=== PATIENT | female | born 1980 | race African-American/Black ===

== ENCOUNTER → 2016-05-06 | Outpatient (CLI) | payer OTHER | LOC: OD 16:52 | PROVIDERS: ATTEND Physician Assistant | DX: M25.562 Pain in left knee (principal) ==

== ENCOUNTER 2016-05-11 18:31 | Emergency (ER) | payer OTHER ==
--- NOTE | 2016-05-11 18:40 | ER Document Report ---
ED Medical Screen (RME) - General Stated Complaint: DIZZINESS,WEAKNESS,DIFFICULTY BREATHING Time seen by provider: 18:39 Mode of Arrival: Ambulatory Information source: Patient Notes: 35-year-old female with a history of asthma is complaining of asthma exacerbation for several weeks. She continues with a cough. Her doctor started her on prednisone 6 days ago. She started feeling weak and dizzy yesterday. I have greeted and performed a rapid initial assessment of this patient. A comprehensive ED assessment, evaluation of the patient, analysis of test results , and completion of the medical decision making process will be contacted by additional ED providers. TRAVEL OUTSIDE OF THE [place] IN LAST 30 DAYS: No Physical Exam - Vital signs Vitals: Temp Pulse Resp BP Pulse Ox 98.0 F 76 18 130/79 H 99 05/11/16 18:36 05/11/16 18:36 05/11/16 18:36 05/11/16 18:36 05/11/16 18:36 Course - Vital Signs Vital signs: Temp Pulse Resp BP Pulse Ox 98.0 F 76 18 130/79 H 99 05/11/16 18:36 05/11/16 18:36 05/11/16 18:36 05/11/16 18:36 05/11/16 18:36
[2016-05-11 19:10] LABS: ABSOLUTE BASOPHILS # (AUTO) 0.1 10^3/uL (0.0-0.2); ABSOLUTE EOSINOPHILS # (AUTO) 0.1 10^3/uL (0.0-0.6); ABSOLUTE LYMPHOCYTES (AUTO) 2.3 10^3/uL (0.5-4.7); ABSOLUTE MONOCYTES (AUTO) 0.4 10^3/uL (0.1-1.4); ABSOLUTE NEUT (AUTO) 3.5 10^3/uL (1.7-8.2); BASOPHILS % (AUTO) 0.9 % (0-2); EOSINOPHILS % (AUTO) 1.7 % (0-6); HEMATOCRIT 43.4 % (36.0-47.0); HEMOGLOBIN 14.3 g/dL (12.0-15.5); HGB HCT DIFFERENCE -0.5; LYMPHOCYTES % (AUTO) 35.8 % (13-45); MEAN CORPUSCULAR HGB CONC 32.9 g/dL (32.0-36.0); MEAN CORPUSCULAR VOLUME 85 fl (80-97); MONOCYTES % (AUTO) 6.4 % (3-13); RED BLOOD COUNT 5.11 10^6/uL (3.72-5.28); RED CELL DISTRIBUTION WIDTH 13.3 % (11.5-14.0); SEGMENTED NEUTROPHILS % (AUTO) 55.2 % (42-78); WHITE BLOOD COUNT 6.3 10^3/uL (4.0-10.5)
[2016-05-11 19:33] LABS: ALANINE AMINOTRANSFERASE 34 U/L (9-52); ALBUMIN 4.2 g/dL (3.5-5.0); ALKALINE PHOSPHATASE 52 U/L (38-126); ANION GAP 12 (5-19); ASPARTATE AMINO TRANSFERASE 17 U/L (14-36); BILIRUBIN,TOTAL 0.6 mg/dL (0.2-1.3); BLOOD UREA NITROGEN 18 mg/dL (7-20); CALCIUM 9.7 mg/dL (8.4-10.2); CARBON DIOXIDE 26 mmol/L (22-30); CHLORIDE 104 mmol/L (98-107); CREATININE RESULT 0.76 mg/dL (0.52-1.25); GLUCOSE 92 mg/dL (75-110); POTASSIUM 4.6 mmol/L (3.6-5.0); SODIUM 142.1 mmol/L (137-145)
[2016-05-11] MEDS ORDERED: NORMAL SALINE 1000 ML 1,000 ML IV ONE (20:30)
--- NOTE | 2016-05-11 20:32 | ER Document Report ---
ED General - General Chief Complaint: Dizziness Stated Complaint: DIZZINESS,WEAKNESS,DIFFICULTY BREATHING Time seen by provider: 20:30 Mode of Arrival: Ambulatory Notes: Patient is a 35-year-old female that comes emergency department for chief complaint of feeling weak and feeling lightheaded, she states that occasionally when she gets up and she will start to feel a little bit lightheaded and have to sit down, she states that if she sits holding her neck forward she gets tired and has to lay her head flat. She denies any visual changes, syncope, spinning sensation, fever, shortness of breath. She states that she has been on prednisone over the past week for asthma, states she is using her albuterol nebulizer more frequently than usual, states that seasonally her asthma gets worse. She denies smoking, she denies any other medical problems. She denies any current symptoms. TRAVEL OUTSIDE OF THE [place] IN LAST 30 DAYS: No - Related Data Allergies/Adverse Reactions: No Known Allergies Allergy (Unverified 05/11/16 18:39) Past Medical History - General Information source: Patient - Social History Smoking Status: Never Smoker Chew tobacco use (# tins/day): No Frequency of alcohol use: None Drug Abuse: None Lives with: Family Family History: Reviewed & Not Pertinent Patient has suicidal ideation: No Patient has homicidal ideation: No Pulmonary Medical History: Reports: Hx Asthma Renal/ Medical History: Denies: Hx Peritoneal Dialysis - Immunizations Hx Diphtheria, Pertussis, Tetanus Vaccination: Yes Review of Systems - Review of Systems Constitutional: See HPI EENT: No symptoms reported Cardiovascular: See HPI Respiratory: See HPI Gastrointestinal: No symptoms reported Genitourinary: No symptoms reported Female Genitourinary: No symptoms reported Musculoskeletal: No symptoms reported Skin: No symptoms reported Hematologic/Lymphatic: No symptoms reported Neurological/Psychological: No symptoms reported Physical Exam - Vital signs Vitals: Temp Pulse Resp BP Pulse Ox 98.0 F 76 18 130/79 H 99 05/11/16 18:36 05/11/16 18:36 05/11/16 18:36 05/11/16 18:36 05/11/16 18:36 Interpretation: Normal - General General appearance: Appears well, Alert In distress: None - Smiling and laughing - HEENT Head: Normocephalic, Atraumatic Eyes: Normal Conjunctiva: Normal Extraocular movements intact: Yes Eyelashes: Normal Pupils: PERRL Sinus: Normal Nasal: Normal Mouth/Lips: Normal Mucous membranes: Normal Pharynx: Normal Neck: Normal - Respiratory Respiratory status: No respiratory distress Chest status: Nontender Breath sounds: Normal. No: Decreased air movement, Wheezing Chest palpation: Normal - Cardiovascular Rhythm: Regular. No: Irregularly irregular, Tachycardia Heart sounds: Normal auscultation, S1 appreciated, S2 appreciated Murmur: No - Abdominal Inspection: Normal Distension: No distension Bowel sounds: Normal Tenderness: Nontender. No: Tender, Guarding Organomegaly: No organomegaly - Back Back: Normal, Nontender - Extremities General upper extremity: Normal inspection, Nontender, Normal color, Normal ROM , Normal temperature General lower extremity: Normal inspection, Nontender, Normal color, Normal ROM , Normal temperature, Normal weight bearing. 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 I saw patient walking around the emergency department without any difficulty before I even entered the room to evaluate her. Patient has steady gait. Currently asymptomatic. Given a bolus of fluid. Labs reviewed and show no acute findings. HCG is negative. Neurological exam is normal. No acute findings, very low suspicion of any life- threatening etiology. Recommended patient follow-up with primary care for additional evaluation, discussed return precautions. Patient states understanding and agreement. - Vital Signs Vital signs: Temp Pulse Resp BP Pulse Ox 98.6 F 76 22 H 120/76 97 05/11/16 22:01 05/11/16 18:36 05/11/16 22:01 05/11/16 22:01 05/11/16 22:01 - Laboratory Result Diagrams: 05/11/16 18:45 05/11/16 18:45 Discharge - Discharge Clinical Impression: Lightheadedness Fatigue Qualifiers: Fatigue type: unspecified Qualified Code(s): R53.83 - Other fatigue Condition: Stable Disposition: HOME, SELF-CARE Additional Instructions: No acute abnormalities are noted on your examination, monitoring, or workup. Perform slow position changes, stay hydrated, use your albuterol as needed for intermittent asthma episodes. Follow-up with primary care for additional workup and evaluation. Return the emergency department for any concerning or worsening symptoms including shortness of breath, passing out, etc.
[2016-05-11 22:54] VITALS: BP 120/76
== END 2016-05-11 22:30 | disposition home or self-care (01) ==
LOC: ER 18:31
DX: R42 Dizziness and giddiness (principal); R53.83 Other fatigue; R53.1 Weakness; J45.909 Unspecified asthma, uncomplicated
CPT/HCPCS: 99284; 96360; 36415; 84703; 85025; 80053; 71020; J7030